=== PATIENT | female | born 1985 | race Caucasian/White ===

== ENCOUNTER → 2018-12-02 | Outpatient (CLI) | payer BC ==
[~2018-12-02] MED LIST: NAPR-868 PO; NONE PER PT
[2018-12-02 08:56] LABS: BASOPHILS # (AUTO) 0.05 x10^3/uL (0-0.1); BASOPHILS % (AUTO) 1 % (0-1); EOSINOPHILS # (AUTO) 0.14 x10^3/uL (0-0.4); EOSINOPHILS % (AUTO) 2 % (1-7); LYMPHOCYTES % (AUTO) 30 % (22-44); MD NO; MEAN CORPUSCULAR HEMOGLOBIN 28.7 pg (27.0-34.8); MEAN CORPUSCULAR HGB CONC 33.7 g/dL (32.4-35.8); MEAN CORPUSCULAR VOLUME 85.1 fL (80-100); MEAN PLATELET VOLUME 8.2 fL (7.4-10.4); MONOCYTES # (AUTO) 0.39 x10^3/uL (0.2-0.8); MONOCYTES % (AUTO) 5 % (2-9); NEUTROPHILS # (AUTO) 4.66 x10^3/uL (1.8-6.8); NEUTROPHILS % (AUTO) 63 % (42-75); PLATELET COUNT 296 x10^3/uL (130-400); RED BLOOD COUNT 4.94 x10^6/uL (3.82-5.3); RED CELL DISTRIBUTION WIDTH 13.6 % (9.6-15.2)
[2018-12-02 08:56] LABS: MICROSCOPIC NOT IND
[2018-12-02 09:05] LABS: ANION GAP 4 mmol/L (5-15); CALCIUM 9.3 mg/dL (8.5-10.1); CHLORIDE 106 mmol/L (98-107)
[2018-12-02 09:11] LABS: CULTURE INDICATED? NO
[2018-12-02 09:12] LABS: ALANINE AMINOTRANSFERASE 37 U/L (12-78); ALKALINE PHOSPHATASE 61 U/L (45-117); BILIRUBIN,TOTAL 0.3 mg/dL (0.2-1.0); CREATININE 0.77 mg/dL (0.55-1.02); TOTAL PROTEIN 7.9 g/dL (6.4-8.2)
== END | disposition home or self-care (01) ==
LOC: STAR 07:59
PROVIDERS: ATTEND Obstetrics & Gynecology
DX: Z01.818 Encounter for other preprocedural examination (principal); N92.0 Excessive and frequent menstruation with regular cycle; R10.31 Right lower quadrant pain; Z80.41 Family history of malignant neoplasm of ovary; Z88.0 Allergy status to penicillin; Z88.2 Allergy status to sulfonamides; Z91.040 Latex allergy status
CPT/HCPCS: 36415; 80053; 81003; 84702; 85025

== ENCOUNTER 2018-12-08 05:38 | Observation (INO) | payer BC ==
[~2018-12-08] VITALS: Ht 160 cm; Wt 82.3 kg
[2018-12-08] MEDS ORDERED: LACTATED RINGERS 1,000 ML IV SCH (06:03)
[2018-12-08 06:23] VITALS: BP 134/91
[2018-12-08] MEDS ORDERED: ACETAMINOPHEN 500 MG TABLET PO ONE (06:30)
[2018-12-08] MEDS ORDERED: GABAPENTIN 300 MG CAPSULE PO ONE (06:30)
[2018-12-08] MEDS ORDERED: FLUORESCEIN SODIUM 500 MG/5 ML ONE (06:46)
[2018-12-08] MEDS ORDERED: BUPIVACAINE/PF 0.25% ONE (06:46)
[2018-12-08] MEDS ORDERED: EPINEPHRINE 1 MG/ML, 1ML ONE (06:46)
[2018-12-08 06:55] LABS: HCG UR SG 1.006 (1.003-1.030)
[2018-12-08] MEDS ORDERED: MIDAZOLAM 1 MG/ML, 2ML ONE ×2 (07:28→10:04)
[2018-12-08] MEDS ORDERED: FENTANYL PF 100 MCG/2ML ONE ×2 (07:28→10:00)
[2018-12-08] MEDS ORDERED: CLINDAMYCIN 150 MG/ML, 6ML ONE (07:32)
[2018-12-08] MEDS ORDERED: ROCURONIUM 10 MG/ML,10ML ONE (07:37)
[2018-12-08] MEDS ORDERED: NEOSTIGMINE 1 MG/ML, 10ML ONE (07:37)
[2018-12-08] MEDS ORDERED: EPINEPHRINE 1 MG/ML, 1ML INFIL ONE (07:37)
[2018-12-08] MEDS ORDERED: BUPIVACAINE/PF-EPI 0.25% 1:200K INFIL ONE (07:37)
[2018-12-08] MEDS ORDERED: LIDOCAINE-MPF 2% ,5ML ONE (07:37)
[2018-12-08] MEDS ORDERED: ONDANSETRON 2MG/ML, 2ML ONE ×2 (07:37→09:56)
[2018-12-08] MEDS ORDERED: PROPOFOL 10 MG/ML, 20ML ONE (07:37)
[2018-12-08] MEDS ORDERED: GLYCOPYRROLATE 0.2MG/1ML, 5ML ONE (07:37)
[2018-12-08] MEDS ORDERED: DEXAMETHASONE 4 MG/ML, 5ML ONE (07:37)
[2018-12-08] MEDS ORDERED: BUPIVACAINE/PF 0.25% INFIL ONE (07:37)
[2018-12-08] MEDS ORDERED: METOCLOPRAMIDE 5 MG/ML, 2ML ONE (07:37)
[2018-12-08] MEDS ORDERED: MEPERIDINE/PF 25MG/ML,1ML ONE (09:38)
[2018-12-08] MEDS ORDERED: OXYcodone 5 MG/5 ML ORAL.SOL UDC ONE (09:56)
[2018-12-08] MEDS ORDERED: MEPERIDINE/PF 25MG/0.5ML IVPush PRN (10:00)
[2018-12-08] MEDS ORDERED: ONDANSETRON 2MG/ML, 2ML IVPush PRN (10:00)
[2018-12-08] MEDS ORDERED: MIDAZOLAM 1 MG/ML, 2ML IV PRN (10:00)
[2018-12-08] MEDS ORDERED: HYDROmorphone 1 MG/ML, 1ML IV PRN (10:00)
[2018-12-08] MEDS ORDERED: FENTANYL PF 100 MCG/2ML IV PRN (10:00)
[2018-12-08] MEDS ORDERED: LABETALOL 5MG/ML, 20ML IV PRN (10:00)
[2018-12-08] MEDS: OXYcodone 5 MG/5 ML ORAL.SOL UDC PO PRN ×3 (10:02→19:53)
[2018-12-08] MEDS ORDERED: ONDANSETRON 2MG/ML, 2ML IV PRN (19:30)
[2018-12-08 19:52] VITALS: BP 116/80
[2018-12-08] MEDS ORDERED: NAPROXEN 250 MG TABLET PO PRN (20:00)
[2018-12-08] MEDS ORDERED: ONDANSETRON ODT 4 MG PO PRN (21:00)
[2018-12-08] MEDS ORDERED: OXYcodone 5 MG/5 ML ORAL.SOL UDC PO PRN (21:00)
[2018-12-08] MEDS ORDERED: ACETAMINOPHEN 500 MG TABLET PO PRN (21:00)
[2018-12-08] MEDS ORDERED: PROMETHAZINE 25 MG/ML, 1ML IM PRN (21:00)
[2018-12-08] MEDS: SIMETHICONE 80 MG CHEW TAB PO SCH (21:42)
[2018-12-09 00:11] VITALS: BP 122/74
[2018-12-09] MEDS: LACTATED RINGERS 1,000 ML IV SCH ×2 (02:15→09:00)
[2018-12-09 03:37] VITALS: BP 124/80
[2018-12-09 05:00] LABS: BASOPHILS # (AUTO) 0.01 x10^3/uL (0-0.1); BASOPHILS % (AUTO) 0 % (0-1); EOSINOPHILS % (AUTO) 0 % (1-7); LYMPHOCYTES # (AUTO) 1.37 x10^3/uL (1-3.4); LYMPHOCYTES % (AUTO) 9 % (22-44); MD NO; MEAN CORPUSCULAR HEMOGLOBIN 29.4 pg (27.0-34.8); MEAN CORPUSCULAR HGB CONC 34.5 g/dL (32.4-35.8); MEAN CORPUSCULAR VOLUME 85.3 fL (80-100); MEAN PLATELET VOLUME 8.4 fL (7.4-10.4); MONOCYTES # (AUTO) 0.68 x10^3/uL (0.2-0.8); MONOCYTES % (AUTO) 5 % (2-9); NEUTROPHILS # (AUTO) 12.54 x10^3/uL (1.8-6.8); NEUTROPHILS % (AUTO) 86 % (42-75); PLATELET COUNT 248 x10^3/uL (130-400); RED BLOOD COUNT 4.51 x10^6/uL (3.82-5.3); RED CELL DISTRIBUTION WIDTH 13.9 % (9.6-15.2)
[2018-12-09] MEDS: SIMETHICONE 80 MG CHEW TAB PO SCH (09:03)
[2018-12-09 09:04] VITALS: BP 125/76
[2018-12-09 13:12] VITALS: BP 111/75
== END 2018-12-09 13:55 | disposition home or self-care (01) ==
LOC: OUT 05:38 → 4NOR 19:19 → OUT 22:55 → DCLOUNGE 12-09 13:40
PROVIDERS: ADMIT Obstetrics & Gynecology; ATTEND Obstetrics & Gynecology
DX: N80.1 Endometriosis of ovary (principal); N80.0 Endometriosis of uterus; N92.0 Excessive and frequent menstruation with regular cycle; G89.29 Other chronic pain; K66.0 Peritoneal adhesions (postprocedural) (postinfection); Z80.41 Family history of malignant neoplasm of ovary; Z83.3 Family history of diabetes mellitus
CPT/HCPCS: 36415; 58552; 81025; 85025; 88307; G0378; J0171; J1100; J2175; J2250; J2405; J2704; J2710; J2765; J3010; J3490; J7120; Q0162; S0077